=== PATIENT | male | born 1990 | race Caucasian/White ===

== ENCOUNTER 2024-01-15 14:18 | Emergency (ER) | payer OTHER ==
[2024-01-15] MEDS ORDERED: Cyclobenzaprine 10 MG Tab PO ONE (14:19)
== END 2024-01-15 16:38 | disposition home or self-care (01) ==
LOC: FB.ED 14:18
DX: S06.0X0A Concussion without loss of consciousness, initial encounter (principal); S16.1XXA Strain of muscle, fascia and tendon at neck level, initial encounter; W22.8XXA Striking against or struck by other objects, initial encounter
CPT/HCPCS: 70450; 99283; 99284; A9270-GY